=== PATIENT | male | born 1960 | race Caucasian/White ===

== ENCOUNTER 2017-07-13 12:23 | Emergency (ER) | payer SELFPAY ==
[~2017-07-13] VITALS: Ht 175.3 cm; Wt 97.5 kg
[2017-07-13] MEDS ORDERED: Crutch1 EACH MISC (13:58)
== END 2017-07-13 14:04 | disposition home or self-care (01) ==
LOC: ER 12:23
DX: S89.92XA Unspecified injury of left lower leg, initial encounter (principal); I10 Essential (primary) hypertension; F17.210 Nicotine dependence, cigarettes, uncomplicated; Z98.890 Other specified postprocedural states; W01.0XXA Fall on same level from slipping, tripping and stumbling without subsequent striking against object, initial encounter
CPT/HCPCS: 29505; 73564; 99283

== ENCOUNTER 2020-11-24 08:55 | Observation (INO) | payer OTHER ==
[~2020-11-24] VITALS: Ht 175.3 cm; Wt 84.5 kg
[~2020-11-24 08:55] MED LIST: Crutch1 EACH MISC
[2020-11-24 09:51] LABS: BASOPHILS ABSOLUTE AUTO 0.08 K/mm3 (0.00-0.23); BASOPHILS PERCENT AUTO 1 % (0-2); EOSINOPHILS PERCENT AUTO 0 % (0-6); Hematocrit 33.3 % (37.0-53.0); Hemoglobin 11.9 g/dL (13.5-17.5); IMMATURE GRAN ABSOLUTE AUTO 0.12 K/mm3 (0.00-0.10); IMMATURE GRAN PERCENT AUTO 1 % (0-1); LYMPHOCYTES ABSOLUTE AUTO 0.95 K/mm3 (0.84-5.20); LYMPHOCYTES PERCENT AUTO 8 % (21-46); MONOCYTES ABSOLUTE AUTO 0.96 K/mm3 (0.16-1.47); MONOCYTES PERCENT AUTO 8 % (4-13); Mean Corpuscular HGB 36.8 pg (26.0-34.0); Mean Corpuscular HGB Conc 35.7 g/dL (31.5-36.5); Mean Corpuscular Volume 103 fL (80-100); NEUTROPHILS ABSOLUTE AUTO 10.27 K/mm3 (1.96-9.15); NEUTROPHILS PERCENT AUTO 83 % (41-73); Platelet Count 113 K/mm3 (150-400); RDW Coefficient Variation 13.2 % (11.7-14.2); Red Blood Cell Count 3.23 M/mm3 (4.30-5.90); White Blood Cell Count 12.38 K/mm3 (4.00-11.30)
[2020-11-24 10:06] LABS: Alanine Aminotransfer (ALT/SGP 49 U/L (12-78); Albumin, Blood 2.1 g/dL (3.4-5.0); Albumin/Globulin Ratio 0.4 (0.8-1.8); Alk Phos 181 U/L (50-136); Anion Gap 7 mmol/L (6-16); Aspartate Aminotrans (AST/SGOT 173 U/L (12-37); Bilirubin, Total 7.5 mg/dL (0.1-1.0); Blood Urea Nitrogen 5 mg/dL (8-24); CO2, Blood 26 mmol/L (21-32); Calcium, Blood 8.6 mg/dL (8.5-10.1); Chloride, Blood 93 mmol/L (98-108); Creatinine, Blood 0.63 mg/dL (0.60-1.20); Globulin, Blood 5.7 g/dL (2.2-4.0); Glomerular Filtration Rate >60 (60-); Glucose, Blood 106 mg/dL (70-99); Potassium, Blood 3.9 mmol/L (3.5-5.5); Sodium, Blood 126 mmol/L (136-145); Total Protein, Blood 7.8 g/dL (6.4-8.2)
[2020-11-24 17:46] LABS: International Normalized Ratio 1.89; Prothrombin Time Results 19.7 Sec (9.7-11.5)
--- NOTE | 2020-11-24 18:48 | NUR ---
1740 RECEIVED PT TO RM 338 VIA W/C. A&O, CHIVO AND CO-OP. INDEPENDENT IN RM. ADMITTED FOR ALCOHOLIC CIRRHOSIS AND ABD PAIN WITH EATING. ABD US AND CT COMPLETE IN ER. PT TO HAVE A PARACENTESIS IN AM. PT ON 1500cc FR; VERY COMPLIANT. ABD VERY SWOLLEN AND FIRM. BLE'S SWOLLEN WELL. PT AND S/O REPORTED SWELLING TO LE'S MUCH IMPROVED FROM WHEN HE CAME IN TO ER. PT DENIED FURTHER NEEDS. CALL LT IN REACH.
--- NOTE | 2020-11-25 03:32 | NUR ---
SHIFT SUMMARY PATIENT HAD NO ACUTE CHANGES OBSERVED. AXOX 4 AND INDEPENDENT IN THE ROOM. PIV REMAINS INTACT. FLUID RESTRICTION 1,500 mL. CIWA SCORE: THREE. REPORTS LAST DRINK 11/23/20 AT APPROX 22:30. FIRST TIME STOPPED DRINKING IN 40 YEARS. PARACENTESIS IN A.M. ABDOMEN SWOLLEN AND FIRM. VSS/AFEBRILE. DENIES CHEST PAIN, SOB, AND N/V. CALL LIGHT IN REACH. BED IN LOWEST POSITION. WILL CONTINUE TO MONITOR UNTIL DAY SHIFT NURSE ASSUMES CARE.
[2020-11-25 05:29] LABS: BASOPHILS ABSOLUTE AUTO 0.06 K/mm3 (0.00-0.23); BASOPHILS PERCENT AUTO 1 % (0-2); EOSINOPHILS ABSOLUTE AUTO 0.01 K/mm3 (0.00-0.68); EOSINOPHILS PERCENT AUTO 0 % (0-6); Hematocrit 29.7 % (37.0-53.0); Hemoglobin 10.9 g/dL (13.5-17.5); IMMATURE GRAN ABSOLUTE AUTO 0.06 K/mm3 (0.00-0.10); IMMATURE GRAN PERCENT AUTO 1 % (0-1); LYMPHOCYTES ABSOLUTE AUTO 1.06 K/mm3 (0.84-5.20); LYMPHOCYTES PERCENT AUTO 13 % (21-46); MONOCYTES ABSOLUTE AUTO 0.71 K/mm3 (0.16-1.47); MONOCYTES PERCENT AUTO 9 % (4-13); Mean Corpuscular HGB 37.5 pg (26.0-34.0); Mean Corpuscular HGB Conc 36.7 g/dL (31.5-36.5); Mean Corpuscular Volume 102 fL (80-100); Mean Platelet Volume 10.8 fL (9.1-12.4); NEUTROPHILS ABSOLUTE AUTO 6.46 K/mm3 (1.96-9.15); NEUTROPHILS PERCENT AUTO 77 % (41-73); Platelet Count 91 K/mm3 (150-400); RDW Coefficient Variation 13.3 % (11.7-14.2); RDW Standard Deviation 50.2 fL (35.1-46.3); Red Blood Cell Count 2.91 M/mm3 (4.30-5.90); White Blood Cell Count 8.36 K/mm3 (4.00-11.30)
[2020-11-25 05:54] LABS: Alanine Aminotransfer (ALT/SGP 39 U/L (12-78); Albumin, Blood 1.8 g/dL (3.4-5.0); Albumin/Globulin Ratio 0.4 (0.8-1.8); Alk Phos 148 U/L (50-136); Anion Gap 6 mmol/L (6-16); Aspartate Aminotrans (AST/SGOT 127 U/L (12-37); Bilirubin, Total 8.2 mg/dL (0.1-1.0); Blood Urea Nitrogen 6 mg/dL (8-24); Bun/Creatinine Ratio 9.8 (12.0-20.0); CO2, Blood 28 mmol/L (21-32); Calcium, Blood 8.5 mg/dL (8.5-10.1); Chloride, Blood 95 mmol/L (98-108); Creatinine, Blood 0.61 mg/dL (0.60-1.20); Globulin, Blood 4.8 g/dL (2.2-4.0); Glomerular Filtration Rate >60 (60-); Glucose, Blood 86 mg/dL (70-99); Potassium, Blood 4.4 mmol/L (3.5-5.5); Sodium, Blood 129 mmol/L (136-145); Total Protein, Blood 6.6 g/dL (6.4-8.2)
[2020-11-25 09:10] LABS: HBSAG SCREEN Negative (Negative); HEP A AB, IGM Negative (Negative); HEP B CORE AB, IGM Negative (Negative); HEP B CORE AB, TOT Negative (Negative); HEP C VIRUS AB 0.1 (0.0-0.9)
--- NOTE | 2020-11-25 10:43 | NUR ---
PT IN PROCEDURE
[2020-11-25 12:12] LABS: Protein, Body Fluid 0.8 g/dL
[2020-11-25 12:16] LABS: Albumin, Body Fluid 0.3 g/dL
[2020-11-25 12:22] LABS: Lactate Dehydrogenase, Body Fl 35 U/L
[2020-11-25 12:31] LABS: Automated BF WBC Count 0.061 K/mm3 (0-999); Body Fluid WBC Count 61 /mm3 (0-999)
[2020-11-25 12:55] LABS: RBC Count, Body Fluid 86 /mm3 (0-0)
[2020-11-25 13:11] LABS: Appearance, Body Fluid Clear (Clear); Color, Body Fluid L Yellow (None-Yellow); Total Cell Count, Body Fluid 100
--- NOTE | 2020-11-25 18:04 | NUR ---
SHIFT SUMMARY PT AOX4; INDEPENDENT IN THE ROOM. PT HAD PARACENTESIS TODAY AND TOOK OUT 2900 L. PT STATED HE FELT SO MUCH BETTER ESPECIALLY ON HIS ABD. DENIES ANY PAIN AND SITE INTACT. BED IS IN THE LOWEST POSITION AND CALL LIGHT WITHIN REACH
--- NOTE | 2020-11-26 04:43 | NUR ---
SHIFT SUMMARY PATIENT ALERT AND ORIENTED. HAD NO COMPLAINTS OF PAIN OR SHORTNESS OF BREATH. NO SIGNS OF ALCOHOL WITHDRAWAL NOTED. IV PATENT AND FLUSHED. BED IN LOWEST POSITION WITH WHEELS LOCKED. CALL LIGHT WITHIN REACH. REPORT GIVEN TO ONCOMING RN.
--- NOTE | 2020-11-26 04:55 | NUR ---
SHIFT SUMMARY PATIENT ALERT AND ORIENTED X2-3. MEDICATED PER EMAR FOR PAIN, HYPERTENTION, AND ALCOHOL WITHDRAWAL SYMPTOMS. NO COMPLAINTS OF SHORTNESS OF BREATH. IV PATENT AND INFUSING. BED IN LOWEST POSITION WITH WHEELS LOCKED AND ALARM ON. CALL LIGHT WITHIN REACH. REPORT GIVEN TO ONCUNA KOTHARI.
[2020-11-26] MEDS ORDERED: ALDACTONE100 MG PO (13:26)
[2020-11-26] MEDS ORDERED: B-1100 M1 PO (13:26)
[2020-11-26] MEDS ORDERED: FOLI1 PO (13:26)
[2020-11-26] MEDS ORDERED: MULVITA PO (13:26)
[2020-11-26] MEDS ORDERED: FURO40 PO (13:26)
== END 2020-11-26 14:00 | disposition home or self-care (01) ==
LOC: ER 08:55 → MEDS 08:56
PROVIDERS: Emergency Medicine; Nurse Practitioner Acute Care; ADMIT Internal Medicine
DX: K70.31 Alcoholic cirrhosis of liver with ascites (principal); K76.6 Portal hypertension; F10.288 Alcohol dependence with other alcohol-induced disorder; E87.1 Hypo-osmolality and hyponatremia; D53.1 Other megaloblastic anemias, not elsewhere classified; D72.829 Elevated white blood cell count, unspecified; D69.59 Other secondary thrombocytopenia; I10 Essential (primary) hypertension; Z87.891 Personal history of nicotine dependence
CPT/HCPCS: 36415; 49083; 71045; 74177; 76705; 80053; 82042; 82140; 82728; 83615; 83690; 83735; 84157; 84443; 85025; 85610; 86317; 86704; 86705; 86708; 86709; 86803; 87040; 87070; 87205; 87340; 89051; 93005; 93010; 96365; 96366; 96375; 99285-25; A9270; G0378; J0696; J1940; P9046; Q9967

== ENCOUNTER 2020-12-08 14:38 | Emergency (ER) | payer OTHER ==
[~2020-12-08] VITALS: Ht 172.7 cm; Wt 83.9 kg
[~2020-12-08 14:38] MED LIST changes: +ALDACTONE100 MG PO; +B-1100 M1 PO; +FOLI1 PO; +FURO40 PO; +MULVITA PO
[2020-12-08 15:23] LABS: BASOPHILS ABSOLUTE AUTO 0.11 K/mm3 (0.00-0.23); BASOPHILS PERCENT AUTO 1 % (0-2); EOSINOPHILS ABSOLUTE AUTO 0.01 K/mm3 (0.00-0.68); EOSINOPHILS PERCENT AUTO 0 % (0-6); Hematocrit 32.6 % (37.0-53.0); Hemoglobin 11.5 g/dL (13.5-17.5); IMMATURE GRAN ABSOLUTE AUTO 0.14 K/mm3 (0.00-0.10); IMMATURE GRAN PERCENT AUTO 1 % (0-1); LYMPHOCYTES ABSOLUTE AUTO 1.23 K/mm3 (0.84-5.20); LYMPHOCYTES PERCENT AUTO 9 % (21-46); MONOCYTES ABSOLUTE AUTO 0.95 K/mm3 (0.16-1.47); MONOCYTES PERCENT AUTO 7 % (4-13); Mean Corpuscular HGB 36.7 pg (26.0-34.0); Mean Corpuscular HGB Conc 35.3 g/dL (31.5-36.5); Mean Corpuscular Volume 104 fL (80-100); Mean Platelet Volume 10.6 fL (9.1-12.4); NEUTROPHILS ABSOLUTE AUTO 10.85 K/mm3 (1.96-9.15); NEUTROPHILS PERCENT AUTO 82 % (41-73); Platelet Count 141 K/mm3 (150-400); RDW Coefficient Variation 13.3 % (11.7-14.2); RDW Standard Deviation 50.6 fL (35.1-46.3); Red Blood Cell Count 3.13 M/mm3 (4.30-5.90); White Blood Cell Count 13.29 K/mm3 (4.00-11.30)
[2020-12-08 15:39] LABS: International Normalized Ratio 2.01; Prothrombin Time Results 20.9 Sec (9.7-11.5)
[2020-12-08 15:40] LABS: Alanine Aminotransfer (ALT/SGP 59 U/L (12-78); Albumin/Globulin Ratio 0.4 (0.8-1.8); Alk Phos 156 U/L (50-136); Anion Gap 5 mmol/L (6-16); Aspartate Aminotrans (AST/SGOT 127 U/L (12-37); Bilirubin, Total 5.9 mg/dL (0.1-1.0); Blood Urea Nitrogen 9 mg/dL (8-24); Bun/Creatinine Ratio 12.1 (12.0-20.0); CO2, Blood 27 mmol/L (21-32); Calcium, Blood 8.1 mg/dL (8.5-10.1); Chloride, Blood 94 mmol/L (98-108); Creatinine, Blood 0.74 mg/dL (0.60-1.20); Globulin, Blood 5.1 g/dL (2.2-4.0); Glomerular Filtration Rate >60 (60-); Glucose, Blood 117 mg/dL (70-99); Potassium, Blood 4.5 mmol/L (3.5-5.5); Sodium, Blood 126 mmol/L (136-145); Total Protein, Blood 7.1 g/dL (6.4-8.2)
[2020-12-08 20:30] LABS: Automated BF WBC Count 0.055 K/mm3 (0-999); Body Fluid WBC Count 55 /mm3 (0-999)
[2020-12-08 20:42] LABS: Appearance, Body Fluid Hazy (Clear); Color, Body Fluid Yellow (None-Yellow); RBC Count, Body Fluid 853 /mm3 (0-0)
[2020-12-08 20:46] LABS: Total Cell Count, Body Fluid 100
[2020-12-08 20:51] LABS: pH, Body Fluid 7.9
[2020-12-08 21:03] LABS: Glucose, Body Fluid 107 mg/dL; Lactate Dehydrogenase, Body Fl 36 U/L; Protein, Body Fluid 0.7 g/dL
== END 2020-12-09 00:21 | disposition home or self-care (01) ==
LOC: ER 14:38
PROVIDERS: Physician Assistant; Student in an Organized Health Care Education/Training Program
DX: R18.8 Other ascites (principal); K74.60 Unspecified cirrhosis of liver; J90 Pleural effusion, not elsewhere classified; E87.1 Hypo-osmolality and hyponatremia; E87.70 Fluid overload, unspecified; I10 Essential (primary) hypertension; F17.200 Nicotine dependence, unspecified, uncomplicated
CPT/HCPCS: 36415; 49082; 71045; 80053; 82945; 83615; 83986; 84157; 85025; 85610; 87070; 87075; 87205; 89051; 96365-59; 96375-59; 99284-25; J0696; J1940

== ENCOUNTER → 2021-01-25 | Outpatient (CLI) | payer OTHER | END | disposition home or self-care (01) | LOC: LAB SHORT 14:14 | DX: N39.0 Urinary tract infection, site not specified (principal) | CPT/HCPCS: 87086 ==

== ENCOUNTER 2021-02-01 17:03 | Inpatient (IN) | payer OTHER ==
[~2021-02-01] VITALS: Ht 175.3 cm; Wt 83.5 kg
[2021-02-01 18:28] LABS: BASOPHILS ABSOLUTE AUTO 0.03 K/mm3 (0.00-0.23); BASOPHILS PERCENT AUTO 0 % (0-2); EOSINOPHILS ABSOLUTE AUTO 0.03 K/mm3 (0.00-0.68); EOSINOPHILS PERCENT AUTO 0 % (0-6); Hematocrit 24.1 % (37.0-53.0); Hemoglobin 8.8 g/dL (13.5-17.5); IMMATURE GRAN ABSOLUTE AUTO 0.16 K/mm3 (0.00-0.10); IMMATURE GRAN PERCENT AUTO 2 % (0-1); LYMPHOCYTES ABSOLUTE AUTO 1.37 K/mm3 (0.84-5.20); LYMPHOCYTES PERCENT AUTO 14 % (21-46); MONOCYTES PERCENT AUTO 12 % (4-13); Mean Corpuscular HGB 36.5 pg (26.0-34.0); Mean Corpuscular HGB Conc 36.5 g/dL (31.5-36.5); Mean Corpuscular Volume 100 fL (80-100); NEUTROPHILS ABSOLUTE AUTO 7.33 K/mm3 (1.96-9.15); NEUTROPHILS PERCENT AUTO 72 % (41-73); RDW Coefficient Variation 15.3 % (11.7-14.2); RDW Standard Deviation 55.5 fL (35.1-46.3); Red Blood Cell Count 2.41 M/mm3 (4.30-5.90); White Blood Cell Count 10.12 K/mm3 (4.00-11.30)
[2021-02-01 18:38] LABS: Platelet Count 73 K/mm3 (150-400)
[2021-02-01 18:50] LABS: Alanine Aminotransfer (ALT/SGP 43 U/L (12-78); Albumin, Blood 1.9 g/dL (3.4-5.0); Albumin/Globulin Ratio 0.5 (0.8-1.8); Alk Phos 146 U/L (50-136); Anion Gap 7 mmol/L (6-16); Aspartate Aminotrans (AST/SGOT 68 U/L (12-37); Bilirubin, Total 13.4 mg/dL (0.1-1.0); Blood Urea Nitrogen 24 mg/dL (8-24); CO2, Blood 26 mmol/L (21-32); Calcium, Blood 8.6 mg/dL (8.5-10.1); Chloride, Blood 84 mmol/L (98-108); Globulin, Blood 4.1 g/dL (2.2-4.0); Glomerular Filtration Rate >60 (60-); Glucose, Blood 97 mg/dL (70-99); Potassium, Blood 4.7 mmol/L (3.5-5.5); Sodium, Blood 117 mmol/L (136-145)
[2021-02-01 19:54] LABS: Source, Urine Clean Catch
[2021-02-01 19:59] LABS: Appearance, Urine Bloody (Clear); Bilirubin, Urine Neg (Neg); Blood, Urine 5+ (Neg); Color, Urine Red (P-Yellow); Glucose Qualitative, Urine Neg (Neg); Ketones, Urine Neg (Neg); Leukocyte Esterase, Urine 2+ (Neg); Nitrite, Urine Neg (Neg); Protein, Urine 3+ (Neg); Specific Gravity, Urine 1.015 (1.003-1.022); Urobilinogen, Urine 1+ (Normal); pH, Urine 6.5 (5.0-8.0)
[2021-02-01 20:09] LABS: Bacteria Few /hpf; Red Blood Cells, Urine TNTC /hpf (0-2); Squamous Epithelial Cells Not Seen /hpf (Few)
[2021-02-01 23:04] LABS: Sodium, Blood 118 mmol/L (136-145)
[2021-02-01 23:30] LABS: SARS-Cov-2 (COVID-19) PCR, MMC NEGATIVE (NEGATIVE)
[2021-02-01 23:43] LABS: Osmolality, Serum 253 mos/KG (275-300)
--- NOTE | 2021-02-02 00:13 | NUR ---
60 YR OLD MALE ADMITTED FROM THE ED WITH HYPONATREMIA AND HX OF HEPATIC LIVER FAILURE. ALERT AND ORIENTED. ORIENTED TO USE OF CALL LIGHT. CALL LIGHT IN REACH
--- NOTE | 2021-02-02 00:58 | NUR ---
PT ADMITTED WITH LOW NA+, CALL PLACED TO MD FOR ORDERWS FOR NA+ REPLACEMENT/TX. WAITING FOR CALL BACK. SEE MAR FOR DETAILS.
--- NOTE | 2021-02-02 01:24 | NUR ---
AWAKE, VOICED SOB AFTER GETTING OUT OF BED TO USE URINAL. O2 SATS 97% ON ROOM AIR. HOB AT 45 DEGREES. VOICED FEELING BETTER. ENCOURAGED TO CALL FOR STAFF PRIOR TO ATTEMPTS OUT OF BED FOR ASSISTANCE IF NEEDED. CALL LIGHT IN REACH
--- NOTE | 2021-02-02 01:29 | NUR ---
RT NOTIFIED OF ORDERS FOR CONTINUOUS PULSE OX
--- NOTE | 2021-02-02 01:52 | NUR ---
CALLED BACK. NOTIFIED OF LOW NA+ (118) AND NO ORDERS FOR REPLACEMENT. STATED HE WOULD ASSESS THE CHART AND DECIDE/ADDRESS SAID ISSUE
[2021-02-02 05:26] LABS: BASOPHILS ABSOLUTE AUTO 0.03 K/mm3 (0.00-0.23); BASOPHILS PERCENT AUTO 0 % (0-2); EOSINOPHILS ABSOLUTE AUTO 0.01 K/mm3 (0.00-0.68); EOSINOPHILS PERCENT AUTO 0 % (0-6); Hemoglobin 8.7 g/dL (13.5-17.5); IMMATURE GRAN ABSOLUTE AUTO 0.16 K/mm3 (0.00-0.10); IMMATURE GRAN PERCENT AUTO 2 % (0-1); LYMPHOCYTES ABSOLUTE AUTO 1.53 K/mm3 (0.84-5.20); LYMPHOCYTES PERCENT AUTO 17 % (21-46); MONOCYTES ABSOLUTE AUTO 1.13 K/mm3 (0.16-1.47); MONOCYTES PERCENT AUTO 12 % (4-13); Mean Corpuscular HGB 36.6 pg (26.0-34.0); Mean Corpuscular HGB Conc 36.3 g/dL (31.5-36.5); Mean Corpuscular Volume 101 fL (80-100); Mean Platelet Volume 9.5 fL (9.1-12.4); NEUTROPHILS ABSOLUTE AUTO 6.24 K/mm3 (1.96-9.15); NEUTROPHILS PERCENT AUTO 69 % (41-73); Platelet Count 62 K/mm3 (150-400); RDW Coefficient Variation 15.4 % (11.7-14.2); RDW Standard Deviation 56.6 fL (35.1-46.3); Red Blood Cell Count 2.38 M/mm3 (4.30-5.90)
--- NOTE | 2021-02-02 05:30 | NUR ---
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 AND HX OF EMPHYSEMA AND ETOH ABUSE. SKIN APPEARS JAUNDICED. SEEMS QUICK TO DESAT WITH LITTLE EXERTION. ORDERS FOR CONT PULSE OX AND PLACED PER RT. SATS IN THE LOW 90'S WHILE IN BED. NOTE APPARENT HEMATURIA WITH VOIDING, PT STATED HE HAS BEEN "BLEEDING" FOR A WEEK OR SO. HAS RECEIVED VIT K, BOTH ORAL AND IM - SEE MAR FOR DETAILS. MD WAS NOTIFIED OF LOW NA+, STATED HE WOULD REVIEW THE CHART AND DECIDE POSSIBLE TREATMENT, OF THIS WRITING, NO NOTED ORDERS AFFECTING SAID NA+. CHARGE NURSE NOTIFIED. PT HAS BEEN RESTING WUIETLY WITH OCCASIONAL INTERRUPTIONS OF DESATING WITH VOIDING. CALL LIGHT IN REACH.
--- NOTE | 2021-02-02 05:52 | NUR ---
DR RAMOS AT BEDSIDE RE CONSULT FOR LOW NA+. SEE MD ORDERS FOR FOLLOW UP.
[2021-02-02 05:59] LABS: Alanine Aminotransfer (ALT/SGP 39 U/L (12-78); Albumin, Blood 1.7 g/dL (3.4-5.0); Albumin/Globulin Ratio 0.4 (0.8-1.8); Alk Phos 146 U/L (50-136); Aspartate Aminotrans (AST/SGOT 64 U/L (12-37); Bilirubin, Total 11.9 mg/dL (0.1-1.0); Blood Urea Nitrogen 22 mg/dL (8-24); Bun/Creatinine Ratio 18.5 (12.0-20.0); CO2, Blood 26 mmol/L (21-32); Calcium, Blood 8.4 mg/dL (8.5-10.1); Chloride, Blood 86 mmol/L (98-108); Creatinine, Blood 1.19 mg/dL (0.60-1.20); Globulin, Blood 4.1 g/dL (2.2-4.0); Glomerular Filtration Rate >60 (60-); Glucose, Blood 83 mg/dL (70-99); Potassium, Blood 4.7 mmol/L (3.5-5.5); Total Protein, Blood 5.8 g/dL (6.4-8.2)
[2021-02-02 06:09] LABS: Anion Gap 7 mmol/L (6-16); Sodium, Blood 119 mmol/L (136-145)
[2021-02-02 11:23] LABS: Potassium, Blood 4.5 mmol/L (3.5-5.5)
--- NOTE | 2021-02-02 17:44 | NUR ---
SHIFT SUMMARY PATIENT DENIES PAIN, NAUSEA, AND SHORTNESS OF BREATH. PATIENT IS A SBA TO THE BATHROOM. PATIENT USES THE URINAL INDEPENDENTLY. COLLECTING URINE FOR A 24HR SAMPLE, STARTED AT 0745. PATIENT STILL VOIDING MAROON URINE. PATIENT SODIUM 119, BP 98/[address] RAMOS CALLED, IV BUMEX ORDERED TIDD. ALBUMIN ORDERED TIDD. LABS REDRAWN AFTER. SODIUM 120. PATIENT EATING AND DRINKING WELL. PATIENT IS PLEASANT AND COOPERATIVE WITH CARE.
[2021-02-02 21:11] LABS: Potassium, Blood 4.5 mmol/L (3.5-5.5)
--- NOTE | 2021-02-03 05:08 | NUR ---
PT IS AAO. DENIES PAIN. RESP UNLABORED. CONT PULSE OX ON SAT 94%. SR ON TELE; HR 70. LUNDS WITH DIMINISHED BREATH SOUNDS AT ALEKSANDER LOWER BASES. 2+ PITTING EDEMA ALEKSANDER LOWER EXT. LEGS ELEVATED ON PILLOWS. 24 HR URINE COLLECTION IN PROGRESS. CALL LIGHT WITHIN REACH. LOW B/P 97/56 AT HS. MIDODRINE STARTED. NO CHANGE IN STATUS NOTED.
[2021-02-03 05:19] LABS: Hematocrit 20.9 % (37.0-53.0); Hemoglobin 7.8 g/dL (13.5-17.5)
[2021-02-03 05:45] LABS: Alanine Aminotransfer (ALT/SGP 35 U/L (12-78); Albumin/Globulin Ratio 0.6 (0.8-1.8); Alk Phos 121 U/L (50-136); Anion Gap 7 mmol/L (6-16); Aspartate Aminotrans (AST/SGOT 55 U/L (12-37); Blood Urea Nitrogen 21 mg/dL (8-24); Bun/Creatinine Ratio 20.4 (12.0-20.0); CO2, Blood 28 mmol/L (21-32); Calcium, Blood 8.4 mg/dL (8.5-10.1); Chloride, Blood 87 mmol/L (98-108); Creatinine, Blood 1.03 mg/dL (0.60-1.20); Globulin, Blood 3.5 g/dL (2.2-4.0); Glomerular Filtration Rate >60 (60-); Glucose, Blood 90 mg/dL (70-99); Magnesium, Blood 2.3 mg/dL (1.6-2.4); Phosphorus, Blood 3.2 mg/dL (2.5-4.9); Potassium, Blood 4.4 mmol/L (3.5-5.5); Sodium, Blood 122 mmol/L (136-145); Total Protein, Blood 5.5 g/dL (6.4-8.2)
[2021-02-03 10:39] LABS: Protein, Urine Quantitative 107.3 mg/dL (0.0-11.9)
[2021-02-03 11:24] LABS: Potassium, Blood 4.4 mmol/L (3.5-5.5)
[2021-02-03 12:01] LABS: Percent Saturation 78.9 % (20.0-50.0)
--- NOTE | 2021-02-03 12:41 | NUR ---
Discussed cirrhosis nutrition recommendations with pt. Pt reported that he has been limiting dietary sodium at home. Pt reported early satiety, so encouraged pt to eat more calorically dense foods to assist with meeting nutritional needs. Encouraged pt to eat multiple smaller meals throughout the day, including a snack before bed. Pt requested a handout for reviewing discussed information in the future. RD plans to return with [facility] cirrhosis nutrition therapy handout.
--- NOTE | 2021-02-04 04:42 | NUR ---
PT IS AAO. SR ON TELE. SAT 94%. B/P THIS MORNING 103/59. LUNGS WITH DIMINISHED BREATH SOUNDS. RESP UNLABORED. LOWER EXT REMAIN EDEMATOUS. ENCOURAGE TO ELEVATE ON PILLOWS. CALL LIGHT WITHIN REACH. NO CHANGES IN STATUS NOTED.
[2021-02-04 04:51] LABS: Hematocrit 21.5 % (37.0-53.0); Hemoglobin 7.8 g/dL (13.5-17.5)
[2021-02-04 05:12] LABS: Albumin, Blood 2.5 g/dL (3.4-5.0); Anion Gap 7 mmol/L (6-16); Blood Urea Nitrogen 21 mg/dL (8-24); CO2, Blood 28 mmol/L (21-32); Calcium, Blood 8.8 mg/dL (8.5-10.1); Chloride, Blood 90 mmol/L (98-108); Creatinine, Blood 0.96 mg/dL (0.60-1.20); Glomerular Filtration Rate >60 (60-); Glucose, Blood 112 mg/dL (70-99); Magnesium, Blood 2.2 mg/dL (1.6-2.4); Phosphorus, Blood 2.8 mg/dL (2.5-4.9); Potassium, Blood 4.4 mmol/L (3.5-5.5); Sodium, Blood 125 mmol/L (136-145)
--- NOTE | 2021-02-04 16:13 | NUR ---
PATIENT DISCHARGED AT 1610
== END 2021-02-04 16:05 | disposition home or self-care (01) | DRG 433 ==
LOC: ER 17:03 → MEDS 22:12
PROVIDERS: Emergency Medicine; Family Medicine; Internal Medicine Nephrology; Physician Assistant; ADMIT Internal Medicine
PROC: 3E02340 Introduction of Influenza Vaccine into Muscle, Percutaneous Approach (ICD-10-PCS; principal; 2021-02-01)
PROC: HZ2ZZZZ Detoxification Services for Substance Abuse Treatment (ICD-10-PCS; 2021-02-01)
DX: K70.31 Alcoholic cirrhosis of liver with ascites (principal); E87.1 Hypo-osmolality and hyponatremia; N17.9 Acute kidney failure, unspecified; N39.0 Urinary tract infection, site not specified; J90 Pleural effusion, not elsewhere classified; Z20.822 Contact with and (suspected) exposure to COVID-19; Z23 Encounter for immunization; E88.09 Other disorders of plasma-protein metabolism, not elsewhere classified; D63.1 Anemia in chronic kidney disease; N18.2 Chronic kidney disease, stage 2 (mild); D53.9 Nutritional anemia, unspecified; R31.9 Hematuria, unspecified; Z91.14 Patient's other noncompliance with medication regimen; Z98.890 Other specified postprocedural states; Z87.891 Personal history of nicotine dependence; Z79.899 Other long term (current) drug therapy
CPT/HCPCS: 36415; 71046; 74178; 76770; 80053; 80069; 81001; 81050; 82140; 82607; 82728; 82746; 83540; 83550; 83735; 83930; 84100; 84132; 84156; 84295; 85014; 85018; 85025; 87086; 90686; 94762; 96365; 99285; A9270; J0696; J3430; J7050; P9041; Q9967; U0004

== ENCOUNTER → 2021-02-11 | Outpatient (CLI) | payer OTHER | END | disposition home or self-care (01) | LOC: LAB SHORT 14:31 → LAB 14:31 | PROVIDERS: Internal Medicine Nephrology | DX: N18.2 Chronic kidney disease, stage 2 (mild) (principal); D63.1 Anemia in chronic kidney disease; N25.81 Secondary hyperparathyroidism of renal origin; E55.9 Vitamin D deficiency, unspecified; E78.00 Pure hypercholesterolemia, unspecified; R76.9 Abnormal immunological finding in serum, unspecified; R94.5 Abnormal results of liver function studies; G60.9 Hereditary and idiopathic neuropathy, unspecified | CPT/HCPCS: 81050; 82043; 84156; 84300 ==

== ENCOUNTER 2021-02-28 02:47 | Inpatient (IN) | payer OTHER ==
[~2021-02-28] VITALS: Ht 172.7 cm; Wt 83.9 kg
[2021-02-28 03:45] LABS: Hematocrit 24.4 % (37.0-53.0); Hemoglobin 8.4 g/dL (13.5-17.5); Mean Corpuscular HGB 36.8 pg (26.0-34.0); Mean Corpuscular HGB Conc 34.4 g/dL (31.5-36.5); Mean Corpuscular Volume 107 fL (80-100); Mean Platelet Volume 9.6 fL (9.1-12.4); Platelet Count 66 K/mm3 (150-400); RDW Coefficient Variation 13.7 % (11.7-14.2); RDW Standard Deviation 54.2 fL (35.1-46.3); Red Blood Cell Count 2.28 M/mm3 (4.30-5.90); White Blood Cell Count 11.23 K/mm3 (4.00-11.30)
[2021-02-28 04:03] LABS: Alanine Aminotransfer (ALT/SGP 37 U/L (12-78); Albumin, Blood 2.2 g/dL (3.4-5.0); Albumin/Globulin Ratio 0.6 (0.8-1.8); Alk Phos 160 U/L (50-136); Anion Gap 7 mmol/L (6-16); Aspartate Aminotrans (AST/SGOT 56 U/L (12-37); BAND PERCENT MAN 9 % (0-8); BASOPHILS PERCENT MAN 0 % (0-2); Bilirubin, Total 16.3 mg/dL (0.1-1.0); Blood Urea Nitrogen 35 mg/dL (8-24); Bun/Creatinine Ratio 32.1 (12.0-20.0); CO2, Blood 29 mmol/L (21-32); Calcium, Blood 8.8 mg/dL (8.5-10.1); Chloride, Blood 86 mmol/L (98-108); Creatinine, Blood 1.09 mg/dL (0.60-1.20); EOSINOPHILS ABSOLUTE MAN 0.11 K/mm3 (0.00-0.68); EOSINOPHILS PERCENT MAN 1 % (0-6); Globulin, Blood 3.9 g/dL (2.2-4.0); Glomerular Filtration Rate >60 (60-); Glucose, Blood 110 mg/dL (70-99); LYMPHOCYTES ABSOLUTE MAN 0.33 K/mm3 (0.84-5.20); LYMPHOCYTES PERCENT MAN 3 % (21-46); MONOCYTES ABSOLUTE MAN 0.67 K/mm3 (0.16-1.47); MONOCYTES PERCENT MAN 6 % (4-13); MYELOCYTE ABSOLUTE MAN 0.33 K/mm3 (0.00-0.00); MYELOCYTE PERCENT MAN 3 % (0-0); NEUTROPHILS ABSOLUTE MAN 9.77 K/mm3 (1.96-9.15); Potassium, Blood 4.2 mmol/L (3.5-5.5); SEG NEUTROPHILS PERCENT MAN 78 % (41-73); Sodium, Blood 122 mmol/L (136-145); TOTAL CELLS COUNTED 100; Total Protein, Blood 6.1 g/dL (6.4-8.2); Troponin I <0.015 ng/mL (0.000-0.040)
[2021-02-28 06:39] LABS: SARS-Cov-2 (COVID-19) PCR, MMC NEGATIVE (NEGATIVE)
[2021-02-28] MEDS ORDERED: BUME2 (08:38)
[2021-02-28 11:10] LABS: International Normalized Ratio 2.26; Prothrombin Time Results 22.5 Sec (9.7-11.5)
--- NOTE | 2021-02-28 18:55 | NUR ---
SHIFT SUMMARY PATIENT ADMITTED FROM ED FOR SOB AND ACITIES. PATIENT ON 3L NC AT BASELINE AND UPON ADMISSION TO UNIT ON 3L NC SATURATING AT 97%. PATIENT DOES HAVE CO SOB AT REST, STATES HE FEELS LIKE HE CANNOT CATCH HIS BREATH AT TIMES. ABDOMEN DISTENDED. PLAN FOR PARACENTISIS IN AM.
[2021-03-01 04:33] LABS: BASOPHILS ABSOLUTE AUTO 0.03 K/mm3 (0.00-0.23); BASOPHILS PERCENT AUTO 0 % (0-2); EOSINOPHILS PERCENT AUTO 0 % (0-6); Hemoglobin 8.1 g/dL (13.5-17.5); IMMATURE GRAN PERCENT AUTO 2 % (0-1); LYMPHOCYTES ABSOLUTE AUTO 0.94 K/mm3 (0.84-5.20); LYMPHOCYTES PERCENT AUTO 8 % (21-46); MONOCYTES ABSOLUTE AUTO 1.34 K/mm3 (0.16-1.47); MONOCYTES PERCENT AUTO 11 % (4-13); Mean Corpuscular HGB 37.3 pg (26.0-34.0); Mean Corpuscular HGB Conc 35.2 g/dL (31.5-36.5); Mean Corpuscular Volume 106 fL (80-100); Mean Platelet Volume 10.4 fL (9.1-12.4); NEUTROPHILS ABSOLUTE AUTO 9.75 K/mm3 (1.96-9.15); NEUTROPHILS PERCENT AUTO 80 % (41-73); Platelet Count 63 K/mm3 (150-400); RDW Standard Deviation 53.4 fL (35.1-46.3); Red Blood Cell Count 2.17 M/mm3 (4.30-5.90); White Blood Cell Count 12.26 K/mm3 (4.00-11.30)
[2021-03-01 05:08] LABS: Alanine Aminotransfer (ALT/SGP 34 U/L (12-78); Albumin, Blood 1.9 g/dL (3.4-5.0); Albumin/Globulin Ratio 0.5 (0.8-1.8); Alk Phos 122 U/L (50-136); Anion Gap 6 mmol/L (6-16); Aspartate Aminotrans (AST/SGOT 52 U/L (12-37); Bilirubin, Total 13.8 mg/dL (0.1-1.0); Blood Urea Nitrogen 36 mg/dL (8-24); Bun/Creatinine Ratio 30.5 (12.0-20.0); CO2, Blood 28 mmol/L (21-32); Chloride, Blood 89 mmol/L (98-108); Creatinine, Blood 1.18 mg/dL (0.60-1.20); Globulin, Blood 3.6 g/dL (2.2-4.0); Glomerular Filtration Rate >60 (60-); Glucose, Blood 104 mg/dL (70-99); Potassium, Blood 4.7 mmol/L (3.5-5.5); Sodium, Blood 123 mmol/L (136-145); Total Protein, Blood 5.5 g/dL (6.4-8.2)
--- NOTE | 2021-03-01 05:15 | NUR ---
PT IS IN BED AT THIS TIME WHERE HE REMAINS THROUGHOUT THE NIGHT AND IS RESTING COMFORTABLY IN STABLE CONDITION. DENIES PAIN AND DISCOMFORT. ASSISTED WITH CARE AND ADL, ASSISTED WITH BATHROOM AND TOILETING NEEDS. HE IS ENCOURAGED TO CALL FOR HELP WHEN ASSISTANCE IS NEEDED HE IS MONITORED.
--- NOTE | 2021-03-01 08:37 | NUR ---
PARACENTESIS DUE TO INR > 2, PARACENTESIS POST PONED UNTIL TOMORROW. CALLED HOSPITALIST & AWAIT NEW ORDERS.
--- NOTE | 2021-03-01 19:36 | NUR ---
SHIFT SUMMARY PARACENTESIS POST PONED. IV VIT K & 2 UNITS FFP GIVEN, REPEAT LABS IN AM. PARACENTESIS WILL HAPPEN IF INR < 2. DYSPNEA @ REST SOMETIMES BUT MOSTLY JUST w/ ACTIVITY. 3L PER BASELINE.
[2021-03-02 05:17] LABS: Hematocrit 22.3 % (37.0-53.0); Hemoglobin 7.7 g/dL (13.5-17.5); Mean Corpuscular HGB 37.2 pg (26.0-34.0); Mean Corpuscular HGB Conc 34.5 g/dL (31.5-36.5); Mean Corpuscular Volume 108 fL (80-100); Mean Platelet Volume 9.9 fL (9.1-12.4); RDW Coefficient Variation 14.3 % (11.7-14.2); Red Blood Cell Count 2.07 M/mm3 (4.30-5.90); White Blood Cell Count 9.84 K/mm3 (4.00-11.30)
[2021-03-02 05:37] LABS: International Normalized Ratio 1.83; Prothrombin Time Results 18.5 Sec (9.7-11.5)
[2021-03-02 05:42] LABS: Platelet Count 47 K/mm3 (150-400)
[2021-03-02 05:44] LABS: Alanine Aminotransfer (ALT/SGP 35 U/L (12-78); Albumin, Blood 1.9 g/dL (3.4-5.0); Albumin/Globulin Ratio 0.6 (0.8-1.8); Alk Phos 112 U/L (50-136); Anion Gap 8 mmol/L (6-16); Aspartate Aminotrans (AST/SGOT 54 U/L (12-37); Bilirubin, Total 12.1 mg/dL (0.1-1.0); Blood Urea Nitrogen 37 mg/dL (8-24); Bun/Creatinine Ratio 31.4 (12.0-20.0); CO2, Blood 25 mmol/L (21-32); Calcium, Blood 9.5 mg/dL (8.5-10.1); Chloride, Blood 90 mmol/L (98-108); Creatinine, Blood 1.18 mg/dL (0.60-1.20); Globulin, Blood 3.4 g/dL (2.2-4.0); Glomerular Filtration Rate >60 (60-); Glucose, Blood 101 mg/dL (70-99); Sodium, Blood 123 mmol/L (136-145); Total Protein, Blood 5.3 g/dL (6.4-8.2)
--- NOTE | 2021-03-02 07:19 | NUR ---
SUMMARY PT SLEEPING THIS AM.PT HOPING PROCEDURE WILL BE EARLY.PLATELETS 47 THIS AM. INR IMPROVED.I NOTIFIED DR STILL OF PLATELETS.
[2021-03-02 13:05] LABS: Mean Platelet Volume 10.2 fL (9.1-12.4); Platelet Count 71 K/mm3 (150-400)
--- NOTE | 2021-03-02 15:13 | NUR ---
PT TO IMAGING FOR PARACENTESIS VIA HOSPITAL BED
[2021-03-02 16:18] LABS: Automated BF WBC Count 3.126 K/mm3 (0-999); Body Fluid WBC Count 3126 /mm3 (0-999)
[2021-03-02 16:55] LABS: Glucose, Body Fluid 127 mg/dL
[2021-03-02 17:02] LABS: Protein, Body Fluid 0.6 g/dL
[2021-03-02] MEDS ORDERED: ALDACTONE100 M1 PO (17:02)
[2021-03-02] MEDS ORDERED: PANT20 PO (17:03)
[2021-03-02 17:04] LABS: RBC Count, Body Fluid 715 /mm3 (0-0)
[2021-03-02 17:05] LABS: Appearance, Body Fluid Cloudy (Clear); Color, Body Fluid Yellow (None-Yellow)
[2021-03-02 17:07] LABS: Albumin, Body Fluid 0.1 g/dL
[2021-03-02 17:19] LABS: Lactate Dehydrogenase, Body Fl 65 U/L
--- NOTE | 2021-03-02 17:29 | NUR ---
DISCHARGE PT EXCITED FOR DC. FEELING MUCH BETTER POST PARACENTESIS. VSS. DYSPNEA IMPROVED. ENCOURAGED PT TO WORK ON ESTABLISHING ROUTINE PARACENTESIS OUTPT. SCRIPTS SENT TO [facility] PER PT CHOICE & STATES HE ALREADY HAS AN APPNT w/ PCP WITHIN 1 WEEK. ESCORTED OUT VIA W/C TO CAR w/ O2.
[2021-03-02 17:47] LABS: Total Cell Count, Body Fluid 100
== END 2021-03-02 17:30 | disposition home or self-care (01) | DRG 433 ==
LOC: ER 02:47 → ERHOLD 02:58 → SURS 13:00
PROVIDERS: Internal Medicine; Student in an Organized Health Care Education/Training Program; ADMIT Family Medicine
PROC: 30233L1 Transfusion of Nonautologous Fresh Plasma into Peripheral Vein, Percutaneous Approach (ICD-10-PCS; 2021-03-01)
PROC: 30233R1 Transfusion of Nonautologous Platelets into Peripheral Vein, Percutaneous Approach (ICD-10-PCS; 2021-03-01)
PROC: 30233K1 Transfusion of Nonautologous Frozen Plasma into Peripheral Vein, Percutaneous Approach (ICD-10-PCS; 2021-03-01)
PROC: 0W9G3ZZ Drainage of Peritoneal Cavity, Percutaneous Approach (ICD-10-PCS; principal; 2021-03-02)
DX: K70.31 Alcoholic cirrhosis of liver with ascites (principal); E87.1 Hypo-osmolality and hyponatremia; D68.4 Acquired coagulation factor deficiency; R65.10 Systemic inflammatory response syndrome (SIRS) of non-infectious origin without acute organ dysfunction; D63.8 Anemia in other chronic diseases classified elsewhere; N18.9 Chronic kidney disease, unspecified; Z20.822 Contact with and (suspected) exposure to COVID-19; E87.70 Fluid overload, unspecified; J44.9 Chronic obstructive pulmonary disease, unspecified; D69.59 Other secondary thrombocytopenia; Z99.81 Dependence on supplemental oxygen; Z98.890 Other specified postprocedural states; Z87.891 Personal history of nicotine dependence
CPT/HCPCS: 36415; 49083; 71045; 80053; 82040; 82042; 82945; 83615; 84157; 84484; 85025; 85027; 85049; 85610; 85730; 86900; 86901; 89051; 93005; 93010; 96365; 96366; 96374; 96375; 96376; 99285-25; A9270; G0378; J0696; J1940; J3430; J7050; P9035; P9059; U0004